=== PATIENT | female | born 1970 | race Caucasian/White ===

== ENCOUNTER 2020-03-19 09:55 | Outpatient (CLI) | payer OTHER, SELFPAY ==
--- NOTE | 2020-03-19 10:15 | US_ITS ---
WS: [id number] ULTRASOUND ABDOMEN CLINICAL INFORMATION: CHOLELITHIASIS COMPARISON: None. FINDINGS: Liver Size: Normal. Craniocaudal length: 13.7 cm. Echogenicity: Normal. Surface nodularity: None. Mass (size and location): None. Bile ducts Intrahepatic ducts: Normal. Common bile duct diameter: 0.3 cm. Gallbladder Gallstones Gallstones: Present Gallbladder sludge: None. Gallbladder wall thickening: None. Pericholecystic fluid: None. Sonographic Rondon sign: Absent. Pancreas Normal as visualized. Spleen Splenomegaly: None. Craniocaudal length: 10.0 cm. Right kidney: Normal. Hydronephrosis: None. Size: 10.2 cm x 4.4 cm x 5.4 cm Left kidney: Normal. Hydronephrosis: None. Size: 9.8 cm x 4.8 cm x 4.0 cm. Abdominal aorta and IVC Visualized portions are normal. Ascites: None. US/US abdomen complete* [id number] IMPRESSION: 1. Liver is normal. No intrahepatic biliary ductal dilatation. 2. Cholelithiasis. Largest shadowing gallstone measures 2.4 cm. No gallbladder wall thickening or pericholecystic fluid. Normal common bile duct. 3. No hydronephrosis in either kidney. 4. Normal spleen.
== END 2020-03-19 09:56 | disposition home or self-care (01) ==
LOC: RAD 09:57
PROVIDERS: Family Provider Family Medicine; PCP Family Medicine; Visit Provider Family Medicine
DX: K80.20 Calculus of gallbladder without cholecystitis without obstruction (principal)
CPT/HCPCS: 76700

== ENCOUNTER 2020-05-07 13:56 | Outpatient (CLI) | payer OTHER, SELFPAY ==
--- NOTE | 2020-05-07 14:05 | CT_ITS ---
WS: [id number] CT ABDOMEN PELVIS TECHNIQUE: Contrast-enhanced CT of the abdomen and pelvis with coronal and sagittal reformatted image s. CLINICAL INFORMATION: BACK PAIN COMPARISON: None. DLP: 681.[address] scans at [facility] use at least one of these dose optimization techniques: automat ed exposure control; mA and/or kV adjustment per patient size (includes targeted exams where dose is matched to clinical indication); or iterative reconstruction. FINDINGS: Mild diffuse fatty infiltration liver. Normal portal vein and splenic vein. Extensive Cholelithiasis. Lung bases are well aerated. Spleen is normal. Normal adrenal glands. Normal GE junction. Pancreas a ppears normal. Normal adrenal glands. Normal renal parenchymal enhancement. No hydronephrosis. Promin ent extrarenal pelvis sees bilaterally. No obstructing renal or ureteral calculi. Normal sigmoid colon. No evidence of small or large bowel obstruction. Normal appendix. Small inciden pacheco fat-containing umbilical hernia. No periaortic or pelvic lymphadenopathy. No inguinal lymphadenop athy. Prominent adnexal veins can be seen with pelvic congestion syndrome in the appropriate clinical setting. Small ovarian cysts largest in the left measuring [address]/CT abdomen pelvis w con* [id number] IMPRESSION: 1. Mild diffuse fatty infiltration of the liver 2. Prominent extrarenal pelvises bilaterally. No hydronephrosis. No obstructin g renal or ureteral calculi. 3. Dense extensive cholelithiasis. 4. Prominent bilateral adnexal veins can be seen with pelvic congestion syndro me in the appropriate clinical setting. 5. No other significant findings.
[2020-05-07] MEDS: iohexol 300 mg/mL 100 mL Btl IV (15:41)
== END 2020-05-07 13:57 | disposition home or self-care (01) ==
LOC: RAD 13:58
PROVIDERS: PCP Family Medicine; Visit Provider Surgery
DX: M54.9 Dorsalgia, unspecified (principal); R10.13 Epigastric pain; R10.30 Lower abdominal pain, unspecified; K76.0 Fatty (change of) liver, not elsewhere classified; K80.20 Calculus of gallbladder without cholecystitis without obstruction
CPT/HCPCS: 74177

== ENCOUNTER 2020-05-17 09:32 | Outpatient (CLI) | payer OTHER, SELFPAY ==
--- NOTE | 2020-05-17 09:30 | MM_ITS ---
WS: [id number] BILATERAL DIGITAL SCREENING MAMMOGRAPHY WITH CAD CLINICAL INFORMATION: screening HISTORY: Screening mammogram. No current complaints. COMPARISON: December 24, 2017 TECHNIQUE: Bilateral CC and MLO views. FINDINGS: The breasts are composed of heterogeneous fibroglandular density tissue, which can limit the detectio n of small underlying mass lesions. No suspicious mass, asymmetry, calcifications, or architectural d istortion. No evidence of malignancy. Tiny punctate calcification left breast. MM/[id number] IMPRESSION: BI-RADS: 2-Benign FOLLOW UP: 1 Year Follow-up Recommend return to annual screening mammography.
== END 2020-05-17 09:33 | disposition home or self-care (01) ==
LOC: RADSHAW 09:36
PROVIDERS: PCP Family Medicine; Visit Provider Obstetrics & Gynecology
DX: Z12.31 Encounter for screening mammogram for malignant neoplasm of breast (principal)
CPT/HCPCS: 77067

== ENCOUNTER → 2022-06-04 15:59 | Outpatient (BNVA) | payer OTHER, SELFPAY | PROVIDERS: PCP Family Medicine; Visit Provider Obstetrics & Gynecology | DX: R30.0 Dysuria (principal) | CPT/HCPCS: 84315; 87077; 87086; 87184 ==

== ENCOUNTER 2022-06-13 09:55 | Outpatient (CLI) | payer OTHER, SELFPAY ==
--- NOTE | 2022-06-13 10:00 | MM_ITS ---
WS: [id number] Bilateral screening 3D tomosynthesis digital mammogram, 06/13/2022 Clinical Data: Z12.39 - Encounter for other screening for malignant neop... Comparison: 05/17/2020, 12/24/2017, 09/19/2015, 08/10/2014, 07/28/2013, 08/12/2011, 07/30/2010. Findings: The breast parenchymal pattern shows heterogeneous density No spiculated masses or clustered calcific ations are seen. There are no secondary signs of carcinoma. MM/[id number] Impression: 1. Negative bilateral mammogram unchanged. 2. Recommend annual screening mammograms. BIRADS: 1-Negative FOLLOW UP: 1 Year Follow-up The CAD electric organ checker was used.
== END 2022-06-13 09:56 | disposition home or self-care (01) ==
LOC: RAD 09:56
PROVIDERS: PCP Family Medicine; Visit Provider Obstetrics & Gynecology
DX: Z12.31 Encounter for screening mammogram for malignant neoplasm of breast (principal)
CPT/HCPCS: 77063; 77067

== ENCOUNTER → 2023-06-18 13:54 | Outpatient (BNVA) | payer OTHER, SELFPAY | PROVIDERS: PCP Family Medicine; Visit Provider Obstetrics & Gynecology | DX: Z01.419 Encounter for gynecological examination (general) (routine) without abnormal findings (principal) | CPT/HCPCS: 83001 ==

== ENCOUNTER → 2023-07-17 14:35 | Outpatient (BNVA) | payer OTHER, SELFPAY | PROVIDERS: PCP Family Medicine; Visit Provider Obstetrics & Gynecology | DX: N95.1 Menopausal and female climacteric states (principal) | CPT/HCPCS: 83001 ==

== ENCOUNTER → 2024-04-28 15:56 | Outpatient (BNVA) | payer OTHER, SELFPAY | PROVIDERS: PCP Family Medicine; Visit Provider Family Medicine | DX: Z00.00 Encounter for general adult medical examination without abnormal findings (principal); Z13.6 Encounter for screening for cardiovascular disorders | CPT/HCPCS: 80053; 80061 ==

== ENCOUNTER → 2024-10-24 15:34 | Outpatient (BNVA) | payer OTHER, SELFPAY | PROVIDERS: PCP Family Medicine; Visit Provider Obstetrics & Gynecology | DX: Z01.419 Encounter for gynecological examination (general) (routine) without abnormal findings (principal) | CPT/HCPCS: 87624 ==

== ENCOUNTER 2024-11-21 07:15 | Outpatient (CLI) | payer OTHER, SELFPAY ==
--- NOTE | 2024-11-21 07:30 | MM_ITS ---
WS: [id number] BILATERAL SCREENING DIGITAL TOMOSYNTHESIS MAMMOGRAM WITH CAD HISTORY: Z12.31 - Encounter for screening mammogram for malignant ... COMPARISON: 06/13/2022, 05/17/2020 Bilateral CC and MLO views with tomosynthesis and synthetic mammography submitted. Computer aided det ection analyzed. Breast composition: The breasts are heterogeneously dense, which may obscure small masses. No suspici ous masses, microcalcifications or architectural distortion. MM/MM scr BI tomosynthesis [id number] IMPRESSION: BI-RADS: 1 - Negative FOLLOW UP: 1 Year Follow-up
== END 2024-11-21 07:16 | disposition home or self-care (01) ==
PROVIDERS: PCP Family Medicine; Visit Provider Obstetrics & Gynecology
DX: Z12.31 Encounter for screening mammogram for malignant neoplasm of breast (principal); R92.333 Mammographic heterogeneous density, bilateral breasts
CPT/HCPCS: 77063; 77067

== ENCOUNTER → 2025-08-01 12:55 | Outpatient (BNVA) | payer OTHER, SELFPAY | PROVIDERS: PCP Family Medicine; Visit Provider Nurse Practitioner Family | DX: R30.0 Dysuria (principal) | CPT/HCPCS: 81003 ==